=== PATIENT | male | born 1965 | race Caucasian/White ===

== ENCOUNTER → 2022-12-05 | Outpatient (CLI) | payer SELFPAY ==
--- NOTE | 2022-12-05 10:06 | ECHOD_ITS ---
Reason For Study: Chronic Systolic Heart Failure Procedure This was a 2D Doppler, Color Flow transthoracic echocardiogram. Exam performed in department. Left Ventricle Normal LV size. The estimated ejection fraction is 45 %. Stage 3 diastolic dysfunction. No regional wall motion abnormalities noted. Right Ventricle Normal RV size. Normal systolic function. Atria The left atrium is moderately enlarged. Normal right atrium. Mitral Valve Normal mitral valve. Mild (1+) eccentric mitral valve insufficiency. Tricuspid Valve Normal tricuspid valve. Aortic Valve Trisinus/trileaflet aortic valve. Mild diffuse aortic valve thickening. Pulmonic Valve Normal pulmonic valve. Great Vessels Normal aortic root. The pulmonary artery is normal size. Normal inferior vena cava. Pericardium/Pleural No pericardial effusion. MMode/2D Measurements & Calculations LVIDd: 4.4 cm IVSd: 1.0 cm LA dimension: 4.3 cm LVIDs: 3.5 cm LVPWd: 1.1 cm RVDd: 4.3 cm FS: 21.1 % LAV(MOD-bp): 89.9 ml LVAd ap4: 33.1 cm2 SV(MOD-sp4): 40.8 ml LAV(MOD-bp) Indexed: 44.5 ml/m2 LVLd ap4: 8.4 cm LAV(MOD-sp2): 84.2 ml EDV(MOD-sp4): 104.2 ml LAV(MOD-sp4): 83.9 ml EDV(sp4-el): 110.8 ml LVAs ap4: 24.4 cm2 LVLs ap4: 7.8 cm ESV(MOD-sp4): 63.4 ml ESV(sp4-el): 65.0 ml EF(MOD-sp4): 39.2 % EF(sp4-el): 41.3 % SV(sp4-el): 45.8 ml LA A4 area: 25.7 cm2 RA A4 area: 18.9 cm2 Time Measurements MV dec time: 0.10 sec Doppler Measurements & Calculations MV E max cesar: 109.5 cm/sec Lat Peak E' Cesar: 10.5 cm/sec Med Peak E' Cesar: 7.4 cm/sec MV A max cesar: 41.8 cm/sec E/E' lat: 10.5 E/E' med: 14.8 MV E/A: 2.6 MV V2 max: 114.1 cm/sec MV P1/2t max cesar: 114.1 cm/sec Ao V2 max: 118.7 cm/sec MV max P.2 mmHg MV P1/2t: 33.4 msec Ao max P.6 mmHg MV V2 mean: 49.4 cm/sec Ao V2 mean: 83.5 cm/sec MV mean P.3 mmHg MV dec slope: 999.5 cm/sec2 Ao mean P.2 mmHg MV V2 VTI: 22.3 cm MVA(P1/2t): 6.6 cm2 Ao V2 VTI: 23.5 cm AV (velocity ratio): 0.68 LV V1 max: 85.0 cm/sec MR max cesar: 558.2 cm/sec PA V2 max: 77.7 cm/sec LV V1 max P.9 mmHg MR max P.6 mmHg PA V2 mean: 56.1 cm/sec LV V1 mean P.6 mmHg MR mean cesar: 476.7 cm/sec LV V1 mean: 57.9 cm/sec MR mean P.1 mmHg LV V1 VTI: 16.1 cm MR VTI: 187.6 cm ECHO/Echo Complete Interpretation Summary Normal LV size. The estimated ejection fraction is 45 %. Stage 3 diastolic dysfunction. The left atrium is moderately enlarged. Mild (1+) eccentric mitral valve insufficiency. Ordering Physician: Tato Stovall Referring Physician: Tato Stovall Performed By: Adiel Canela RCS
== END | disposition home or self-care (01) ==
PROVIDERS: PCP Physician Assistant; Referring Provider Physician Assistant; Visit Provider Physician Assistant
DX: I50.22 Chronic systolic (congestive) heart failure (principal)
CPT/HCPCS: 93306